=== PATIENT | female | born 1985 | race African-American/Black ===

== ENCOUNTER 2016-08-27 23:45 | Emergency (ER) | payer MEDICAID | END 2016-08-28 01:26 | disposition left against medical advice (07) | LOC: CED 23:45 | DX: R10.2 Pelvic and perineal pain (principal); W10.9XXA Fall (on) (from) unspecified stairs and steps, initial encounter; Y92.009 Unspecified place in unspecified non-institutional (private) residence as the place of occurrence of the external cause | CPT/HCPCS: 99283 ==

== ENCOUNTER → 2016-09-04 22:05 | Emergency (ER) | payer MEDICAID ==
[2016-09-04 21:21] LABS: INFLUENZA A NEG (NEG); INFLUENZA B NEG (NEG)
== END | disposition home or self-care (01) ==
LOC: CED 22:05
PROVIDERS: Emergency Medicine
DX: O99.511 Diseases of the respiratory system complicating pregnancy, first trimester (principal); J10.1 Influenza due to other identified influenza virus with other respiratory manifestations; Z3A.09 9 weeks gestation of pregnancy
CPT/HCPCS: 87651; 87804; 99282; 99283